=== PATIENT | male | born 1990 ===

== ENCOUNTER 2022-06-09 17:34 | Inpatient (IN) ==
[2022-06-09] MEDS ORDERED: NICOTINE 21 MG/24 HR PATCH TRANSDERM PRN (20:45)
[2022-06-09] MEDS ORDERED: hydrALAZINE 20 MG/1 ML VIAL IV PRN (20:45)
[2022-06-09] MEDS ORDERED: DIAZEPAM 10 MG/2 ML SYRINGE IV PRN (21:12)
[2022-06-09 21:20] LABS: Arterial Base Excess iSTAT -16 MMOL/L (-2.5-2.5); Arterial Bicarbonate iSTAT 10.2 MMOL/L (20-26); Arterial O2 Saturation iSTAT 94 % (95-100); Arterial PCO2 iSTAT 27 MM HG (35-48); Arterial PO2 iSTAT 85 MM HG (80-95); Arterial Total CO2 iSTAT 11 MMO/L (23-27); Arterial pH iSTAT 7.194 (7.35-7.45)
[2022-06-09 21:34] LABS: Basophils % 0.2 % (0.0-0.8); Eosinophils # 0.2 10*3/uL (0.0-0.87); Eosinophils % 2.3 % (0.00-10.9); Hematocrit 21.6 VOL% (42.0-52.0); Hemoglobin 6.9 GM/DL (14.0-18.0); Lymphocytes # 1.1 10*3/uL (1.4-4.0); Lymphocytes % 10.2 % (21.2-54.2); Mean Corpuscular HGB Conc 31.9 GM/DL (32-36); Mean Corpuscular Volume 92.7 FL (87-102); Mean Platelet Volume 9.5 FL (9.6-12.0); Monocytes # 0.8 10*3/uL (0.11-0.8); Monocytes % 7.5 % (1.7-12.7); Neutrophils % 78.8 % (38.7-73.9); Platelet Count 176 T/CUMM (130-400); Red Blood Count 2.33 MC/CUMM (3.8-5.5); Red Cell Distribution Width 14.6 % (9.3-17.3); White Blood Count 10.3 T/CUMM (4-12)
[2022-06-09] MEDS ORDERED: VANCOMYCIN INJ 2,000 MG in SODIUM CHLORIDE 0.9% 500 ML IV PRN (21:53)
[2022-06-09] MEDS ORDERED: SODIUM BICARBONATE 50 MEQ/50 ML VIAL IV ONE (22:00)
[2022-06-09 22:05] LABS: INR 1.1; PT Patient Result 12.4 SECS (10.1-12.1)
[2022-06-09 22:10] LABS: % Iron Saturation 42.2 % (18-50); Ferritin 199.4 ng/mL (26-388)
[2022-06-09] MEDS ORDERED: VANCOMYCIN INJ 2,500 MG in SODIUM CHLORIDE 0.9% 500 ML IV ONE (22:30)
[2022-06-09 22:31] LABS: Folate 8.31 NG/ML (5.38-24.0)
[2022-06-09] MEDS: PANTOPRAZOLE 40 MG VIAL IV SCH (22:34)
[2022-06-09] MEDS: PIPERACILLIN/TAZOBACTAM 3,375 MG in SODIUM CHLORIDE 0.9% 100 ML IV SCH (22:35)
[2022-06-09 23:27] LABS: Alanine Aminotransferase 11 U/L (16-61); Albumin 1.5 G/DL (3.4-5.0); Alkaline Phosphatase 77 U/L (45-117); Aspartate Amino Transferase 12 U/L (0-37); Bilirubin,Total < 0.39 MG/DL (0.20-1.00); Blood Urea Nitrogen 107 MG/DL (7-18); Carbon Dioxide 11 MMOL/L (21-32); Chloride 114 MMOL/L (98-107); Cholesterol 71 MG/DL (50-200); Glucose 92 MG/DL (74-106); HDL Cholesterol 26 MG/DL (40-60); Osmolality,Calculated 306.8 MOS/KG (273-304); Potassium 4.1 MMOL/L (3.5-5.1); Risk Ratio 2.73; Sodium 137 MMOL/L (136-145); Triglycerides 79 MG/DL (2-150); VLDL Cholesterol 15.8 MG/DL
[2022-06-10 00:42] LABS: Alanine Aminotransferase 9 U/L (16-61); Albumin 1.4 G/DL (3.4-5.0); Alkaline Phosphatase 69 U/L (45-117); Aspartate Amino Transferase 13 U/L (0-37); Bilirubin,Total < 0.39 MG/DL (0.20-1.00); Blood Urea Nitrogen 112 MG/DL (7-18); Carbon Dioxide 13 MMOL/L (21-32); Chloride 114 MMOL/L (98-107); Glucose 92 MG/DL (74-106); Osmolality,Calculated 312.5 MOS/KG (273-304); Potassium 3.8 MMOL/L (3.5-5.1); Sodium 139 MMOL/L (136-145); Total Protein 6.4 G/DL (6.4-8.2)
[2022-06-10] MEDS: INSULIN LISPRO 100 UNIT/ML SUBCUT SCH ×4 (00:49→17:17)
[2022-06-10 01:53] LABS: Arterial Base Excess iSTAT -14 MMOL/L (-2.5-2.5); Arterial Bicarbonate iSTAT 12.3 MMOL/L (20-26); Arterial O2 Saturation iSTAT 93 % (95-100); Arterial PCO2 iSTAT 30 MM HG (35-48); Arterial PO2 iSTAT 80 MM HG (80-95); Arterial Total CO2 iSTAT 13 MMO/L (23-27); Arterial pH iSTAT 7.228 (7.35-7.45)
[2022-06-10] MEDS: SODIUM BICARB INJ 100 MEQ in STERILE WATER INJ 1,000 ML IV SCH ×3 (02:10→15:00)
[2022-06-10 05:28] LABS: Basophils % 0.2 % (0.0-0.8); Eosinophils # 0.3 10*3/uL (0.0-0.87); Eosinophils % 3.2 % (0.00-10.9); Hematocrit 24.3 VOL% (42.0-52.0); Hemoglobin 7.9 GM/DL (14.0-18.0); Immature Granulocytes % 1.6 %; Immature Granulocytes Absolute 0.13 #; Lymphocytes # 1.1 10*3/uL (1.4-4.0); Lymphocytes % 13.1 % (21.2-54.2); Mean Corpuscular HGB Conc 32.5 GM/DL (32-36); Mean Corpuscular Volume 92.7 FL (87-102); Monocytes # 0.7 10*3/uL (0.11-0.8); Neutrophils % 72.9 % (38.7-73.9); Platelet Count 205 T/CUMM (130-400); Red Blood Count 2.62 MC/CUMM (3.8-5.5); Red Cell Distribution Width 14.6 % (9.3-17.3); White Blood Count 8.2 T/CUMM (4-12)
[2022-06-10 05:52] LABS: Alanine Aminotransferase 11 U/L (16-61); Albumin 1.6 G/DL (3.4-5.0); Alkaline Phosphatase 76 U/L (45-117); Aspartate Amino Transferase 13 U/L (0-37); Bilirubin,Total < 0.39 MG/DL (0.20-1.00); Blood Urea Nitrogen 108 MG/DL (7-18); Carbon Dioxide 13 MMOL/L (21-32); Chloride 115 MMOL/L (98-107); Glucose 81 MG/DL (74-106); Osmolality,Calculated 309.5 MOS/KG (273-304); Sodium 139 MMOL/L (136-145); Total Protein 7.4 G/DL (6.4-8.2)
[2022-06-10] MEDS: PIPERACILLIN/TAZOBACTAM 3,375 MG in SODIUM CHLORIDE 0.9% 100 ML IV SCH ×2 (05:54→16:02)
[2022-06-10 05:55] LABS: Calcium 5.5 MG/DL (8.5-10.1)
[2022-06-10] MEDS: THIAMINE 100 MG TABLET PO SCH ×2 (08:00→20:25)
[2022-06-10] MEDS: MULTIVITAMIN (CENTRUM) TABLET PO SCH (08:01)
[2022-06-10] MEDS: FOLIC ACID 1 MG TABLET PO SCH (08:01)
[2022-06-10] MEDS: PANTOPRAZOLE 40 MG VIAL IV SCH ×2 (08:01→20:25)
[2022-06-10] MEDS ORDERED: CALCIUM GLUCONATE RIDER 2,000 MG/100 ML PREMIX IV ONE ×2 (08:34)
[2022-06-10] MEDS ORDERED: DIAZEPAM 10 MG/2 ML SYRINGE IM PRN (10:56)
[2022-06-10] MEDS ORDERED: DIAZEPAM 10 MG/2 ML SYRINGE IM SCH (11:00)
[2022-06-10] MEDS ORDERED: ZINC OXIDE PASTE 113 GM TUBE TOP PRN (11:54)
[2022-06-10 13:30] LABS: Hepatitis B Core IgM Quant < 0.05 Index; Hepatitis B Surface Ag Quant < 0.10 Index; Hepatitis B Surface Ag Result Non-Reactive (NonReactive); Hepatitis C Virus Ab Quant 0.25 Index; Hepatitis C Virus Ab Result Non-Reactive (NonReactive)
[2022-06-10] MEDS: ACETAMINOPHEN 325 MG TABLET PO PRN ×2 (15:50→20:32)
[2022-06-11] MEDS: INSULIN LISPRO 100 UNIT/ML SUBCUT SCH ×4 (01:05→18:29)
[2022-06-11] MEDS: PIPERACILLIN/TAZOBACTAM 3,375 MG in SODIUM CHLORIDE 0.9% 100 ML IV SCH ×2 (06:00→21:37)
[2022-06-11 06:02] LABS: Basophils % 0.3 % (0.0-0.8); Eosinophils # 0.3 10*3/uL (0.0-0.87); Eosinophils % 3.9 % (0.00-10.9); Hematocrit 25.2 VOL% (42.0-52.0); Hemoglobin 8.1 GM/DL (14.0-18.0); Immature Granulocytes Absolute 0.08 #; Lymphocytes # 0.8 10*3/uL (1.4-4.0); Lymphocytes % 9.9 % (21.2-54.2); Mean Corpuscular HGB Conc 32.1 GM/DL (32-36); Mean Corpuscular Volume 91.6 FL (87-102); Mean Platelet Volume 9.8 FL (9.6-12.0); Monocytes # 0.6 10*3/uL (0.11-0.8); Monocytes % 7.1 % (1.7-12.7); Neutrophils % 77.8 % (38.7-73.9); Platelet Count 236 T/CUMM (130-400); Red Blood Count 2.75 MC/CUMM (3.8-5.5); Red Cell Distribution Width 14.5 % (9.3-17.3)
[2022-06-11 06:21] LABS: Osmolality,Calculated 310.4 MOS/KG (273-304); Potassium 3.8 MMOL/L (3.5-5.1)
[2022-06-11] MEDS: SODIUM BICARB INJ 100 MEQ in STERILE WATER INJ 1,000 ML IV SCH ×2 (06:22→18:15)
[2022-06-11 06:23] LABS: Calcium 5.3 MG/DL (8.5-10.1)
[2022-06-11] MEDS: THIAMINE 100 MG TABLET PO SCH ×2 (08:13→21:39)
[2022-06-11] MEDS: FOLIC ACID 1 MG TABLET PO SCH (08:13)
[2022-06-11] MEDS: MULTIVITAMIN (CENTRUM) TABLET PO SCH (08:13)
[2022-06-11] MEDS ORDERED: BUPIVACAINE MPF 0.25% 10 ML VIAL ONE (09:04)
[2022-06-11] MEDS ORDERED: HEPARIN 5,000 UNIT/1 ML VIAL ONE (09:04)
[2022-06-11] MEDS ORDERED: LIDOCAINE 2%/EPI 20 ML VIAL ONE (09:04)
[2022-06-11] MEDS: PANTOPRAZOLE 40 MG VIAL IV SCH ×2 (09:07→21:37)
[2022-06-11] MEDS ORDERED: LIDOCAINE 2% 5 ML VIAL ONE (09:42)
[2022-06-11] MEDS ORDERED: fentaNYL 100 MCG/2 ML VIAL ONE (09:42)
[2022-06-11] MEDS ORDERED: propofoL 200 MG/20 ML VIAL IV ONE (09:42)
[2022-06-11] MEDS ORDERED: MIDAZOLAM 2 MG/2 ML VIAL ONE (09:43)
[2022-06-11] MEDS ORDERED: SODIUM CHLORIDE 0.9% 250 ML IV SCH (10:00)
[2022-06-11] MEDS ORDERED: SODIUM BICARBONATE 50 MEQ/50 ML VIAL IV ONE (10:08)
[2022-06-11] MEDS ORDERED: CALCIUM CHLORIDE 1,000 MG/10 ML VIAL IV ONE (10:08)
[2022-06-11] MEDS ORDERED: SEVOFLURANE 1 UNIT/15 MINUTE INH ONE (10:22)
[2022-06-11] MEDS ORDERED: MORPHINE 2 MG/1 ML SYRINGE IV ONE (12:27)
[2022-06-11] MEDS: ONDANSETRON 4 MG/2 ML VIAL IV PRN (15:33)
[2022-06-11] MEDS ORDERED: SKIN HEALING OINT (AQUAPHOR) 50 GM TUBE TOP PRN (16:45)
[2022-06-11 16:50] LABS: % Iron Saturation 42.9 % (18-50)
[2022-06-11] MEDS ORDERED: VANCOMYCIN INJ 2,000 MG in SODIUM CHLORIDE 0.9% 500 ML IV ONE (17:00)
[2022-06-11 17:01] LABS: Folate 6.78 NG/ML (5.38-24.0)
[2022-06-11] MEDS ORDERED: HEPARIN 10,000 UNIT/10 ML VIAL IV SCH (20:15)
[2022-06-11] MEDS: CALCIUM (CARBONATE)/VITAMIN D 600 MG-400 UNIT TABLET PO SCH (21:40)
[2022-06-12] MEDS: INSULIN LISPRO 100 UNIT/ML SUBCUT SCH ×4 (02:11→17:51)
[2022-06-12] MEDS: SODIUM BICARB INJ 100 MEQ in STERILE WATER INJ 1,000 ML IV SCH ×4 (02:12→22:37)
[2022-06-12] MEDS: ONDANSETRON 4 MG/2 ML VIAL IV PRN ×2 (04:15→12:17)
[2022-06-12 06:08] LABS: Basophils % 0.5 % (0.0-0.8); Eosinophils # 0.3 10*3/uL (0.0-0.87); Eosinophils % 4.6 % (0.00-10.9); Hematocrit 22.8 VOL% (42.0-52.0); Hemoglobin 7.6 GM/DL (14.0-18.0); Immature Granulocytes % 0.6 %; Immature Granulocytes Absolute 0.04 #; Lymphocytes # 0.8 10*3/uL (1.4-4.0); Lymphocytes % 11.5 % (21.2-54.2); Mean Corpuscular HGB Conc 33.3 GM/DL (32-36); Mean Corpuscular Volume 90.5 FL (87-102); Mean Platelet Volume 9.9 FL (9.6-12.0); Monocytes # 0.6 10*3/uL (0.11-0.8); Monocytes % 8.7 % (1.7-12.7); Neutrophils % 74.1 % (38.7-73.9); Platelet Count 190 T/CUMM (130-400); Red Blood Count 2.52 MC/CUMM (3.8-5.5); Red Cell Distribution Width 14.3 % (9.3-17.3); White Blood Count 6.5 T/CUMM (4-12)
[2022-06-12 06:46] LABS: Osmolality,Calculated 300.3 MOS/KG (273-304); Potassium 3.6 MMOL/L (3.5-5.1)
[2022-06-12 06:48] LABS: Risk Ratio 2.61; VLDL Cholesterol 14.8 MG/DL
[2022-06-12 06:50] LABS: Calcium 5.6 MG/DL (8.5-10.1)
[2022-06-12 06:53] LABS: Alanine Aminotransferase 12 U/L (16-61); Albumin 1.6 G/DL (3.4-5.0); Alkaline Phosphatase 85 U/L (45-117); Aspartate Amino Transferase 19 U/L (0-37); Bilirubin,Total < 0.39 MG/DL (0.20-1.00); Blood Urea Nitrogen 71 MG/DL (7-18); Carbon Dioxide 21 MMOL/L (21-32); Chloride 109 MMOL/L (98-107); Glucose 84 MG/DL (74-106); Osmolality,Calculated 298.4 MOS/KG (273-304); Potassium 3.6 MMOL/L (3.5-5.1); Sodium 140 MMOL/L (136-145)
[2022-06-12 06:58] LABS: Calcium 5.8 MG/DL (8.5-10.1)
[2022-06-12] MEDS ORDERED: EPOETIN ALFA-EPBX 4,000 UNIT/ML VIAL IV PRN (08:06)
[2022-06-12 08:56] LABS: Amorphous Crystals,Urine Occasional /HPF (Few); Mucus,Urine Occasional /LPF (Occasional); RBC,Urine 2 /HPF (0-4); Sperm,Urine Occasional /HPF (Negative); Squamous Epithelial Cell,Urine Occasional /HPF (0-10)
[2022-06-12 08:59] LABS: Bilirubin,Urine Negative (Negative); Blood, Urine Moderate mg/dL (Negative); Glucose,Urine (UA) 100 mg/dL (Negative); Ketones,Urine Trace mg/dL (Negative); Nitrite,Urine Negative (Negative); Protein,Urine >=300 mg/dL (Negative); Urine Appearance Clear (Clear); Urine Color Yellow (Yellow); Urine Urobilinogen 0.2 eU/dL (<2.0); Urine pH 5.5 (4.5-8.0)
[2022-06-12 09:19] LABS: Barbiturates Screen,Urine Negative (Negative); Benzodiazepines Screen,Urine Negative (Negative); Cannabinoid Screen,Urine Negative (Negative); Opiate Screen,Urine Positive (Negative); Phencyclidine Screen,Urine Negative (Negative)
[2022-06-12] MEDS ORDERED: VANCOMYCIN INJ 1,000 MG in SODIUM CHLORIDE 0.9% 250 ML IV PRN (09:44)
[2022-06-12] MEDS: PANTOPRAZOLE 40 MG VIAL IV SCH ×2 (09:57→21:04)
[2022-06-12] MEDS: FOLIC ACID 1 MG TABLET PO SCH (09:57)
[2022-06-12] MEDS: CALCIUM (CARBONATE)/VITAMIN D 600 MG-400 UNIT TABLET PO SCH ×2 (09:57→21:08)
[2022-06-12] MEDS: THIAMINE 100 MG TABLET PO SCH ×2 (09:57→21:07)
[2022-06-12] MEDS: MULTIVITAMIN (CENTRUM) TABLET PO SCH (09:57)
[2022-06-12] MEDS: PIPERACILLIN/TAZOBACTAM 3,375 MG in SODIUM CHLORIDE 0.9% 100 ML IV SCH ×2 (12:18→21:06)
[2022-06-12] MEDS ORDERED: VANCOMYCIN INJ 1,000 MG in SODIUM CHLORIDE 0.9% 250 ML IV ONE (17:00)
[2022-06-13] MEDS: INSULIN LISPRO 100 UNIT/ML SUBCUT SCH ×4 (01:30→19:18)
[2022-06-13 05:41] LABS: Basophils % 0.4 % (0.0-0.8); Eosinophils # 0.2 10*3/uL (0.0-0.87); Eosinophils % 4.2 % (0.00-10.9); Hematocrit 23.8 VOL% (42.0-52.0); Hemoglobin 7.7 GM/DL (14.0-18.0); Lymphocytes # 0.8 10*3/uL (1.4-4.0); Lymphocytes % 16.7 % (21.2-54.2); Mean Corpuscular HGB Conc 32.4 GM/DL (32-36); Mean Corpuscular Volume 92.2 FL (87-102); Mean Platelet Volume 9.5 FL (9.6-12.0); Monocytes # 0.5 10*3/uL (0.11-0.8); Neutrophils % 66.7 % (38.7-73.9); Platelet Count 179 T/CUMM (130-400); Red Blood Count 2.58 MC/CUMM (3.8-5.5); Red Cell Distribution Width 14.3 % (9.3-17.3)
[2022-06-13 06:01] LABS: Calcium 6.1 MG/DL (8.5-10.1); Osmolality,Calculated 282.7 MOS/KG (273-304); Potassium 3.3 MMOL/L (3.5-5.1)
[2022-06-13] MEDS: PANTOPRAZOLE 40 MG VIAL IV SCH ×3 (07:41→21:00)
[2022-06-13] MEDS: PIPERACILLIN/TAZOBACTAM 3,375 MG in SODIUM CHLORIDE 0.9% 100 ML IV SCH ×3 (07:41→21:00)
[2022-06-13] MEDS: MULTIVITAMIN (CENTRUM) TABLET PO SCH ×2 (07:42→10:36)
[2022-06-13] MEDS: FOLIC ACID 1 MG TABLET PO SCH ×2 (07:42→10:36)
[2022-06-13] MEDS: CALCIUM (CARBONATE)/VITAMIN D 600 MG-400 UNIT TABLET PO SCH ×3 (07:42→20:58)
[2022-06-13] MEDS: THIAMINE 100 MG TABLET PO SCH ×3 (07:42→20:58)
[2022-06-13] MEDS: SODIUM BICARB INJ 100 MEQ in STERILE WATER INJ 1,000 ML IV SCH (10:44)
[2022-06-13] MEDS ORDERED: ALUMINUM/MAGNES/SIMETH MAX STR 30 ML UDCUP PO ONE (22:37)
[2022-06-14] MEDS: INSULIN LISPRO 100 UNIT/ML SUBCUT SCH ×2 (01:19→05:38)
[2022-06-14 07:46] VITALS: BP 129/75
[2022-06-14] MEDS: THIAMINE 100 MG TABLET PO SCH (08:44)
[2022-06-14] MEDS: FOLIC ACID 1 MG TABLET PO SCH (08:44)
[2022-06-14] MEDS: CALCIUM (CARBONATE)/VITAMIN D 600 MG-400 UNIT TABLET PO SCH (08:44)
[2022-06-14] MEDS: MULTIVITAMIN (CENTRUM) TABLET PO SCH (08:44)
[2022-06-14] MEDS: PANTOPRAZOLE 40 MG VIAL IV SCH (11:27)
[2022-06-14] MEDS: PIPERACILLIN/TAZOBACTAM 3,375 MG in SODIUM CHLORIDE 0.9% 100 ML IV SCH (11:27)
== END 2022-06-14 11:45 | disposition home or self-care (01) | DRG 674 ==
LOC: N.TELEN 19:21 → SUATTDRO 19:21 → N.ICU 21:52 → N.3E 06-10 17:16
PROVIDERS: ADMIT Internal Medicine; ATTEND Internal Medicine

== ENCOUNTER 2022-10-07 16:56 | Inpatient (IN) ==
[~2022-10-07 16:56] MED LIST: DEXTROSE 10% 250 ML BAG IV PRN; GLUCAGON 1 MG VIAL IM PRN
[2022-10-07 17:34] LABS: Basophils % 0.2 % (0.0-0.8); Eosinophils # 0.1 10*3/uL (0.0-0.87); Eosinophils % 1.1 % (0.00-10.9); Hematocrit 23.6 VOL% (42.0-52.0); Immature Granulocytes % 0.5 %; Immature Granulocytes Absolute 0.04 #; Lymphocytes % 12.2 % (21.2-54.2); Mean Corpuscular HGB Conc 33.9 GM/DL (32-36); Mean Corpuscular Volume 92.5 FL (87-102); Mean Platelet Volume 10.7 FL (9.6-12.0); Monocytes # 0.5 10*3/uL (0.11-0.8); Monocytes % 6.2 % (1.7-12.7); Neutrophils % 79.8 % (38.7-73.9); Platelet Count 161 T/CUMM (130-400); Red Blood Count 2.55 MC/CUMM (3.8-5.5); Red Cell Distribution Width 13.1 % (9.3-17.3); White Blood Count 8.37 T/CUMM (4-12)
[2022-10-07 17:49] LABS: Calcium 7.2 MG/DL (8.5-10.1); Osmolality,Calculated 290.2 MOS/KG (273-304); Potassium 3.4 MMOL/L (3.5-5.1)
[2022-10-07] MEDS ORDERED: VANCOMYCIN INJ 1,000 MG in SODIUM CHLORIDE 0.9% 250 ML IV ONE (20:00)
[2022-10-08] MEDS ORDERED: SEVOFLURANE 1 UNIT/15 MINUTE INH ONE ×2 (08:26→09:24)
[2022-10-08] MEDS ORDERED: fentaNYL 100 MCG/2 ML VIAL ONE (08:26)
[2022-10-08] MEDS ORDERED: propofoL 200 MG/20 ML VIAL IV ONE (08:26)
[2022-10-08] MEDS ORDERED: ROCURONIUM 50 MG/5 ML VIAL IV ONE (08:26)
[2022-10-08] MEDS ORDERED: LIDOCAINE 2% 5 ML VIAL ONE (08:26)
[2022-10-08] MEDS ORDERED: SODIUM CHLORIDE 0.9% 250 ML IV SCH (08:30)
[2022-10-08] MEDS ORDERED: MIDAZOLAM 2 MG/2 ML VIAL ONE (08:49)
[2022-10-08] MEDS ORDERED: SUGAMMADEX 200 MG/2 ML VIAL IV ONE (09:28)
[2022-10-08] MEDS ORDERED: PHENYLEPHRINE 1 MG/10 ML SYRINGE IV ONE (09:31)
[2022-10-08] MEDS ORDERED: HYDROmorphone 1 MG/1 ML SYRINGE ONE (09:46)
[2022-10-08] MEDS ORDERED: ONDANSETRON 4 MG/2 ML VIAL ONE (09:46)
[2022-10-08] MEDS ORDERED: ONDANSETRON 4 MG/2 ML VIAL IV PRN (09:47)
[2022-10-08] MEDS: HYDROmorphone 1 MG/1 ML SYRINGE IV PRN ×2 (09:47→09:56)
[2022-10-08] MEDS ORDERED: MEPERIDINE 25 MG/1 ML VIAL ONE (10:12)
[2022-10-08] MEDS ORDERED: MEPERIDINE 25 MG/1 ML VIAL IV PRN (10:13)
[2022-10-08] MEDS ORDERED: HEPARIN 10,000 UNIT/10 ML VIAL IV SCH (11:00)
[2022-10-08] MEDS: PIPERACILLIN/TAZOBACTAM 3,375 MG in SODIUM CHLORIDE 0.9% 100 ML IV SCH (15:35)
[2022-10-08] MEDS: INSULIN LISPRO 100 UNIT/ML SUBCUT SCH ×2 (15:35→18:44)
[2022-10-08] MEDS ORDERED: INSULIN GLARGINE 100 UNIT/ML SUBCUT SCH (21:00)
[2022-10-09] MEDS: PIPERACILLIN/TAZOBACTAM 3,375 MG in SODIUM CHLORIDE 0.9% 100 ML IV SCH (03:08)
[2022-10-09 06:15] LABS: Calcium 7.3 MG/DL (8.5-10.1); Osmolality,Calculated 284.8 MOS/KG (273-304); Potassium 3.7 MMOL/L (3.5-5.1)
[2022-10-09 06:19] LABS: Basophils % 0.3 % (0.0-0.8); Eosinophils # 0.2 10*3/uL (0.0-0.87); Eosinophils % 3.3 % (0.00-10.9); Hematocrit 25.6 VOL% (42.0-52.0); Hemoglobin 8.6 GM/DL (14.0-18.0); Immature Granulocytes % 0.6 %; Immature Granulocytes Absolute 0.04 #; Lymphocytes # 1.4 10*3/uL (1.4-4.0); Lymphocytes % 20.3 % (21.2-54.2); Mean Corpuscular HGB Conc 33.6 GM/DL (32-36); Mean Corpuscular Volume 93.8 FL (87-102); Mean Platelet Volume 10.6 FL (9.6-12.0); Monocytes # 0.6 10*3/uL (0.11-0.8); Monocytes % 7.8 % (1.7-12.7); Neutrophils % 67.7 % (38.7-73.9); Platelet Count 180 T/CUMM (130-400); Red Blood Count 2.73 MC/CUMM (3.8-5.5); Red Cell Distribution Width 13.1 % (9.3-17.3); White Blood Count 7.03 T/CUMM (4-12)
[2022-10-09] MEDS ORDERED: LOSARTAN 25 MG TABLET PO SCH (09:00)
[2022-10-09] MEDS ORDERED: amLODIPine 10 MG TABLET PO SCH (09:00)
[2022-10-09] MEDS: INSULIN LISPRO 100 UNIT/ML SUBCUT SCH ×2 (10:18→11:35)
[2022-10-09] MEDS ORDERED: AMOXICILLIN/CLAV 500 MG TABLET PO ONE (13:00)
[2022-10-09 15:32] VITALS: BP 126/66
[2022-10-10] MEDS ORDERED: AMOXICILLIN/CLAV 500 MG TABLET PO SCH (17:00)
== END 2022-10-09 17:17 | disposition home or self-care (01) | DRG 638 ==
LOC: N.3E → EDSTATUS 10-08 09:00
PROVIDERS: ADMIT Surgery; ATTEND Surgery